=== PATIENT | male | born 1945 | race Caucasian/White ===

== ENCOUNTER 2021-07-28 19:09 | Outpatient (REF) | payer SELFPAY ==
[2021-07-28 19:30] LABS: Abs Immature Grans 0.03 10^3/uL (0.0-0.06); Absolute Basophil Count 0.04 10^3/uL (0.0-0.2); Absolute Eosinophil Count 0.38 10^3/uL (0.0-0.7); Absolute Lymphocyte Count 0.81 10^3/uL (1.2-3.4); Absolute Monocyte Count 0.46 10^3/uL (0.1-0.8); Absolute Neutrophil Count 3.09 10^3/uL (1.2-6.7); Basophils % 0.8; Eosinophils % 7.9; HCT 50.2 % (40.0-50.0); HGB 15.4 g/dL (13.5-17.5); Immature Grans % 0.6; Lymphocytes % 16.8; MCH 28.4 pg (27.0-33.0); MCHC 30.7 % (32.0-36.0); MCV 92.6 fL (80-95); MPV 9.8 fL (8.0-11.0); Monocytes % 9.6; Neutrophils % 64.3; Nucleated RBC 0 %; Platelet Count 187 10^3/uL (130-400); RBC 5.42 10^6/uL (4.36-5.78); RDW 15.7 % (11.8-14.1); RDW-SD 53.2 fL; WBC 4.81 10^3/uL (4.4-10.8)
[2021-07-28 19:40] LABS: ALT 48 U/L (16-63); AST 29 U/L (15-37); Albumin 3.3 g/dL (3.4-5.0); Alkaline Phosphatase 77 U/L (46-116); Anion Gap 4.8 mmol/L (3-11); BUN 17 mg/dL (7-18); Bilirubin, Total 0.4 mg/dL (0.2-1.0); CO2 37.2 mmol/L (21.0-32.0); CREATININE 1.4 mg/dL (0.70-1.30); Calcium 8.5 mg/dL (8.5-10.1); Chloride 102 mmol/L (98-107); Estimated GFR 49.41 (mL/min/1.73m2); Glucose 126 mg/dL (74-106); Potassium 4.4 mmol/L (3.5-5.1); Sodium 144 mmol/L (136-145); Total Protein 6.8 g/dL (6.4-8.2)
== END 2021-07-28 19:10 | disposition home or self-care (01) ==
LOC: LBN 19:09
PROVIDERS: Visit Provider Family Medicine
DX: I50.9 Heart failure, unspecified (principal); I10 Essential (primary) hypertension
CPT/HCPCS: 80053; 85025

== ENCOUNTER 2021-09-29 00:49 | Outpatient (REF) | payer MEDICARE, BC, SELFPAY | END 2021-09-29 00:50 | disposition home or self-care (01) | LOC: LBN 00:49 | PROVIDERS: Visit Provider Family Medicine | DX: J44.1 Chronic obstructive pulmonary disease with (acute) exacerbation (principal) | CPT/HCPCS: 87086 ==

== ENCOUNTER 2021-10-03 23:24 | Emergency (ER) | payer MEDICARE, BC, SELFPAY ==
[2021-10-03 23:29] VITALS: BP 120/55; PULSE 158; PULSE 61; RESP 11; O2SAT 92
[2021-10-03 23:30] VITALS: BP 110/67; PULSE 64; RESP 18; TEMP 36.6; O2SAT 92; O2SAT 93
--- NOTE | 2021-10-03 23:30 | RT.EKG_ITS ---
APPROVED REPORT Exam: Resting ECG Reason for Exam: stroke like symptoms Patient Location: E HR:56 bpm ECG Measurements Heart Rate 56 AXIS WI [id number] P [id number] QRSd 112 QRS 84 QT 414 T 45 QTc 402 Conclusion afib/flutter, rate 56, no stemi
--- NOTE | 2021-10-03 23:30 | DI.CT_ITS ---
Exam(s) CT BRAIN NECK CTA EXAM: CT BRAIN NECK CTA CLINICAL HISTORY: diminished speech, stokre like symptoms. TECHNIQUE: Imaging Protocol: Axial CT angiography was performed with multi-slice acquisition and mu lti-planar and/or 3D reconstructions. CONTRAST MATERIAL: Intravenous: Omnipaque 350 Contrast volume:100 mL COMPARISON: CR,XR XR PORTABLE CHEST AP from 10/04/2021 FINDINGS: CTA Neck W: Aortic arch anatomy: The left vertebral artery arises as an independent vessel off of the aortic arch . Anterior circulation: Both common carotid arteries exhibit no significant stenosis at the origins. At the level the caroti d bulbs there is some calcified plaque bilaterally extending into the proximal ICA on both sides but amount of stenosis is estimated at less than 20 percent bilaterally. Both internal carotid arteries are patent in the upper neck and skull base-carotid canals. Posterior circulation: Left vertebral artery arises as an independent vessel off the aortic arch. Right vertebral artery ar ises off of the right subclavian artery. Vertebral arteries ascend in the foramen transverse area wi th the left vertebral artery being dominant. At the skull base both vertebral arteries contribute to the formation of the basilar artery. CTA Brain W: Anterior circulation: Both internal carotid arteries are patent in the skull base-carotid canals as well as in the cavernou s sinuses and supraclinoid aspects of these vessels are patent. Both A1 segments are patent as are t he anterior cerebral arteries and there is no evidence of aneurysm at the level of the anterior commu nicating artery. Middle cerebral arteries exhibit normal diameter without evidence of intraluminal t hrombus. No aneurysm. Posterior circulation: Formed by both vertebral arteries at skull base, left vertebral artery being dominant. Distal both superior cerebellar arteries are patent. Posterior cerebral arteries are patent supplied also by posterior communicating arteries CT BRAIN: There is no evidence of intracranial hemorrhage, mass effect, or shift of midline structures. There are no extra-axial fluid collections. Ventricles are not enlarged or shifted. There are no ring enh ancing lesions in the brain and no abnormal meningeal enhancement. Symmetrical atrophy noted. Size of the ventricles is commensurate with the size of the overlying cor tical sulci. There is some periventricular hypodensity consistent with chronic small vessel disease. No ring enhancing lesions in the brain. No abnormal meningeal enhancement IMPRESSION: 1. No acute intracranial findings. Symmetrical atrophy. No ring enhancing lesions 2. Some calcified plaque is noted at the level the carotid bulbs and proximal ICAs bilaterally but w ithout hemodynamically significant stenosis (estimated at approximately 20 percent bilaterally). 3. No large vessel stenosis or occlusion in the anterior and posterior circulations of the intracra nial compartment. RADIATION DOSE DELIVERED: 2,362.45mGy.cm Total DLP DATA REPOSITORY: All CT scans at this facility are submitted to the National Radiology Data Registry (NRDR) Dose Index Registry (DIR) with the [employer] (A[employer]). RADIATION OPTIMIZATION: All CT scans at this facility use at least one of these dose optimization te chniques: automated exposure control; mA and/or kV adjustment per patient size (includes targeted exa ms where dose is matched to clinical indication); or iterative reconstruction.
[2021-10-03 23:31] VITALS: BP 110/67; PULSE 60; O2SAT 92
[2021-10-03 23:40] VITALS: O2SAT 95
[2021-10-03 23:46] VITALS: BP 120/72; PULSE 67; O2SAT 93
[2021-10-03 23:47] LABS: Abs Immature Grans 0.02 10^3/uL (0.0-0.06); Absolute Basophil Count 0.04 10^3/uL (0.0-0.2); Absolute Eosinophil Count 0.33 10^3/uL (0.0-0.7); Absolute Lymphocyte Count 0.79 10^3/uL (1.2-3.4); Absolute Monocyte Count 0.46 10^3/uL (0.1-0.8); Absolute Neutrophil Count 3.37 10^3/uL (1.2-6.7); Basophils % 0.8; Eosinophils % 6.6; HCT 50.6 % (40.0-50.0); HGB 15.5 g/dL (13.5-17.5); Immature Grans % 0.4; Lymphocytes % 15.8; MCHC 30.6 % (32.0-36.0); MCV 91.5 fL (80-95); MPV 9.1 fL (8.0-11.0); Monocytes % 9.2; Neutrophils % 67.2; Nucleated RBC 0 %; Platelet Count 173 10^3/uL (130-400); RBC 5.53 10^6/uL (4.36-5.78); RDW 16.5 % (11.8-14.1); WBC 5.01 10^3/uL (4.4-10.8)
[2021-10-03 23:50] VITALS: O2SAT 91
--- NOTE | 2021-10-03 23:56 | ED.GENADUL_ITS ---
Discharge Plan Disposition Patient Disposition: [facility] (LEVEL 2) [facility] Condition: Good Discharge Details Clinical Impression: Acute alteration in mental status Primary Care Provider: Kiran Chacon ED Provider: Naseem Gleason Home Meds and New Rx's Prescriptions: Continued amiodarone 200 mg Tablet 200 mg PO DAILY RF: 0 benztropine 1 mg Tablet 1 mg PO DAILY RF: 0 duloxetine [Cymbalta] 30 mg Capsule,Delayed Release(Dr/Ec) 30 mg PO INFUSION RF: 0 digoxin 125 mcg (0.125 mg) Tablet 125 mcg PO DAILY RF: 0 melatonin 3 mg Tablet 3 mg PO DAILY RF: 0 omeprazole 20 mg Capsule,Delayed Release(Dr/Ec) 20 mg PO DAILY RF: 0 pravastatin 40 mg Tablet 40 mg PO DAILY RF: 0 tamsulosin 0.4 mg Capsule 0.4 mg PO INFUSION RF: 0 ipratropium bromide 18 mcg/actuation Aerosol 18 mcg INHALATION RF: 0 budesonide-formoterol 160-4.5 mcg/actuation Hfa Aerosol Inhaler 1 puff INHALATION BID RF: 0 buspirone 10 mg Tablet 10 mg PO BID RF: 0 docusate sodium [Colace] 100 mg Capsule 100 mg PO BID RF: 0 Eliquis 5 mg Tablet 5 mg PO BID RF: 0 furosemide [Lasix] 20 mg Tablet 20 mg PO BID RF: 0 metoprolol tartrate 25 mg Tablet 12 mg PO BID RF: 0 albuterol sulfate 90 mcg/actuation Hfa Aerosol Inhaler 1 puff INHALATION Q4H PRN PRNRF: 0 dextromethorphan-guaifenesin 10-100 mg/5 mL Liquid 10 ml PO Q6H PRN PRNRF: 0 bisacodyl [Dulcolax (bisacodyl)] 10 mg Suppository 10 mg [place] DAILY PRN PRNRF: 0 Discharge Instructions Instructions: Altered Mental Status (ED) Additional Instructions: Laboratory work-up is unremarkable. CT and CTA of your head shows no evidence of stroke or thrombus. Chest x-ray is negative for pneumonia or other significant abnormality. I suspect the patient has mild amount of sleep apnea because of minimal transient hypoxemia at 89% on room air. Mental status appears to be stable, the patient is speaking well here. No signs of an acute stroke clinically. Recommend close follow-up with PCP tomorrow. If you notice any worsening of your symptoms, or any new symptoms such as vomiting, diarrhea, fever, chills, shortness of breath, chest pain, numbness, weakness, or fainting , please return immediately to the emergency department for reevaluation. Please follow up with your primary care provider as soon as possible for reassessment and reevaluation. As always, it was a pleasure participating in your medical care today. Referrals: Kiran Chacon [Primary Care Provider] - Medical Decision Making This is a 76-year-old male whom we have no previous medical records but per review of record has a history of DNR/DNI, COPD, paroxysmal A. fib, heart failure, hypertension, anxiety disorder, major depressive disorder, GERD, high cholesterol, BPH, obesity, chronic difficulty with ambulation, ataxia, who presents today from health and rehab for decreased verbal communication and a brief hypoxic episode. Per health and rehab with the patient was evaluated this evening he was hypoxic at 88 to 89% and nonverbal, he is normally verbal. Patient was brought to the ER for further assessment. Upon arrival patient does communicate somewhat. Is able to follow commands. He denies any complaints of pain. EMS and shelter deny any recent falls or trauma. Patient is unable to otherwise contribute to history. EMS vital signs are stable. Glucose normal. Patient was able to communicate with EMS by following commands. No other complaints time. No other modifying factors currently Physical exam demonstrates a well-appearing male, good muscle strength of the upper extremities bilaterally, diminished strength of the lower extremities bilaterally which may be chronic rather than acute. No facial asymmetry. Patient does not seem to demonstrate any slurred speech, however he does speak to the nurse but will not speak to me. Answers are limited. Mucous membranes are dry. Difficult to tell if this is sundowning, altered mental status secondary to metabolic abnormality, or less likely stroke. Patient is on blood thinners already and would not be a tPA candidate. We will get a CT CTA of the head, gently rehydrate evaluate for infectious etiologies and metabolic causes, monitor closely and reassess 1:[address]/CTA as well as chest x-ray are negative for acute process. No evidence of pneumonia, aspiration pneumonia, stroke, or large thrombus. Laboratory work-up is notably unremarkable. Patient's neurologic status remained stable here, he continues to communicate and speak well with both nursing staff and the technician plant and maintenance. Symptoms are inconsistent with stroke, significant hypoxemia. When the patient does fall asleep he does dip down to 89%. Suspect mild component of sleep apnea. With no signs of significant metabolic or neurologic abnormality at this time I do feel it is safe for return back to health and rehab. I did try to personally contact health and rehab but they did not machine operator picker on our attempts to call. Patient will be brought back via EMS. I have extensively reviewed the treatment plan and discharge instructions with the patient. I have addressed all patient concerns at this time. The patient was made aware of what symptoms to monitor for that would warrant a return to the emergency department. Discussed the plan with the patient, they demonstrate verbal understanding and agreement with our assessment and plan at this time. The documentation in this chart was dictated using i[employer] dictation software. Please excuse any dictation errors. FINDINGS: Brain: Prominence of cerebral sulci reflects diffuse cerebral atrophy. Poorly marginated hypodensities seen throughout the deep and periventricular white matter of both cerebral hemispheres are consistent with microvascular ischemic changes. Brainstem and cerebellum are unremarkable and there is no evidence of acute infarct or recent intracranial hemorrhage. Cerebral ventricles: Dilatation of the 3rd and lateral ventricles is commensurate with the degree of cerebral atrophy. Paranasal sinuses: Sphenoethmoid mucosal densities are identified with other paranasal sinuses clear. Mastoid air cells: Normally pneumatized and clear bilaterally. Bones/joints: Bony calvarium and skull base are intact and no acute fractures are detected. Soft tissues: Unremarkable. IMPRESSION: Diffuse atrophy and chronic ischemic changes with no evidence of acute infarct, recent hemorrhage or hydrocephalus. No acute intracranial process is detected. FINDINGS: ANTERIOR CIRCULATION: Right internal carotid artery: Unremarkable. Intracranial segment is patent with no significant stenosis. No aneurysm. Right middle cerebral artery: Unremarkable. No occlusion or significant stenosis. No aneurysm. Right anterior cerebral artery: Unremarkable. No occlusion or significant stenosis. No aneurysm. Left internal carotid artery: Unremarkable. Intracranial segment is patent with no significant stenosis. No aneurysm. Left middle cerebral artery: Unremarkable. No occlusion or significant stenosis. No aneurysm. Left anterior cerebral artery: Unremarkable. No occlusion or significant stenosis. No aneurysm. POSTERIOR CIRCULATION: Right vertebral artery: Unremarkable. No occlusion or significant stenosis. No aneurysm. Left vertebral artery: Unremarkable. No occlusion or significant stenosis. No aneurysm. Basilar artery: Unremarkable. No occlusion or significant stenosis. No aneurysm. Right posterior cerebral artery: origin of the right posterior cerebral artery is a common developmental variant and there is no occlusion or significant stenosis. No aneurysm. Left posterior cerebral artery: origin of the left posterior cerebral art abdon is a common developmental variant and there is no occlusion or significant stenosis. No aneurysm. IMPRESSION: No large vessel stenosis or occlusion detected involving the major branches of the anterior or posterior intracranial circulation. Thank you for allowing us to participate in the care of your patient. Dictated and Authenticated by: Dioni Mejia MD 10/04/2021 1:09 AM Eastern Time ([place] & [place]) FINDINGS: Lungs: No parenchymal mass or consolidation. Pleural spaces: Unremarkable. No pleural effusion. No pneumothorax. Heart/Mediastinum: Heart is enlarged and vessel margins are relatively sharply defined. Bones/joints: No acute osseous lesions are detected. IMPRESSION: Cardiomegaly with no acute cardiopulmonary process detected. Thank you for allowing us to participate in the care of your patient. Dictated and Authenticated by: Dioni Mejia MD 10/04/2021 1:19 AM Eastern Time ([place] & [place]) HPI General Date/Time Provider Initiated Documentation: 10/03/21 23:32 . HPI Narrative: This is a 76-year-old male whom we have no previous medical records but per review of record has a history of DNR/DNI, COPD, paroxysmal A. fib, heart failure, hypertension, anxiety disorder, major depressive disorder, GERD, high cholesterol, BPH, obesity, chronic difficulty with ambulation, ataxia, who presents today from health and rehab for decreased verbal communication and a brief hypoxic episode. Per health and rehab with the patient was evaluated this evening he was hypoxic at 88 to 89% and nonverbal, he is normally verbal. Patient was brought to the ER for further assessment. Upon arrival patient does communicate somewhat. Is able to follow commands. He denies any complaints of pain. EMS and shelter deny any recent falls or trauma. Patient is unable to otherwise contribute to history. EMS vital signs are stable. Glucose normal. Patient was able to communicate with EMS by following commands. No other complaints time. No other modifying factors currently Related Data Home Medications Medication Instructions Recorded Confirmed Eliquis 5 mg PO BID 10/04/21 10/04/21 albuterol sulfate 1 puff INHALATION Q4H PRN PRN 10/04/21 10/04/21 amiodarone 200 mg PO DAILY 10/04/21 10/04/21 benztropine 1 mg PO DAILY 10/04/21 10/04/21 bisacodyl [Dulcolax (bisacodyl)] 10 mg [place] DAILY PRN PRN 10/04/21 10/04/21 budesonide-formoterol 1 puff INHALATION BID 10/04/21 10/04/21 buspirone 10 mg PO BID 10/04/21 10/04/21 dextromethorphan-guaifenesin 10 ml PO Q6H PRN PRN 10/04/21 10/04/21 digoxin 125 mcg PO DAILY 10/04/21 10/04/21 docusate sodium [Colace] 100 mg PO BID 10/04/21 10/04/21 duloxetine [Cymbalta] 30 mg PO INFUSION 10/04/21 10/04/21 furosemide [Lasix] 20 mg PO BID 10/04/21 10/04/21 ipratropium bromide 18 mcg INHALATION 10/04/21 melatonin 3 mg PO DAILY 10/04/21 10/04/21 metoprolol tartrate 12 mg PO BID 10/04/21 10/04/21 omeprazole 20 mg PO DAILY 10/04/21 10/04/21 pravastatin 40 mg PO DAILY 10/04/21 10/04/21 tamsulosin 0.4 mg PO INFUSION 10/04/21 10/04/21 General Stated Complaint: AMS/LOC AYAD: 2 Review of Systems All systems reviewed & are unremarkable except as noted in HPI and below PFSH All Active Problems (Updated 10/04/21 @ 01:27 by Naseem Gleason DO) Acute alteration in mental status (Acute) Social History Smoking/Tobacco Use Status: Never Smoking risk assessment performed?: Yes Alcohol Intake: never Drug use: Never Substance use type: does not use Do you feel safe at home: Yes Do you feel safe in your relationship?: Yes Exam Narrative Exam Narrative: 1.Const: Well-nourished, Well-developed, appearing stated age 2.Eyes: PERRL, no conjunctival injection, and symmetrical lids. 3.ENT: Atraumatic external nose and ears. dry MM. Neck: Symmetric, trachea midline, No thyromegaly. No facial asymmetry 4.CVS: +S1/S2, No murmurs or gallops. Peripheral pulses 2+ and equal in all extremities. Brisk capillary refill in all extremities. 5.RESP: Unlabored respiratory effort. Clear to auscultation bilaterally. No wheezes rales or rhonchi 6.GI: Soft, Nontender/Nondistended, No hepatosplenomegaly. No guarding or rebound. 7.MSK: Normocephalic/Atraumatic, Extremities w/o deformity or ttp No cyanosis or clubbing. 5 out of 5 strength of the upper extremities bilaterally, 3 out of 5 strength of the lower extremities bilaterally. Patient is able to lift and move his arms and respond to commands for these. He has difficulty lifting his legs. He does appear to show some muscle wasting in his legs. 8.Skin: Warm, Dry. No rashes or lesions. 9.Neuro: hand marker II-XII grossly intact. No facial asymmetry. Patient demonstrates good auditing control clerk auditing control clerk strength bilaterally. He is able to speak, and he does speak with the nurse occasionally but does not speak to me. His speech appears clear when he does speak. Although it does appear limited. He does not answer my focus stroke questions. 10.Psych: (AAO) x0. Otherwise plan Course Vital Signs Vital signs: Vital Signs Temperature 36.6 C 10/03/21 23:30 Pulse 64 10/03/21 23:30 Respiratory Rate 18 10/03/21 23:30 Blood Pressure 110/67 10/03/21 23:30 Pulse Oximetry 92 10/03/21 23:30 Temperature 36.6 C 10/03/21 23:30 Temperature Source Temporal Artery Scan 10/03/21 23:30 Pulse 64 10/03/21 23:30 Respiratory Rate 18 10/03/21 23:30 Respiratory Effort 10/03/21 23:34 Respiratory Depth Normal 10/03/21 23:34 Respiratory Pattern Normal 10/03/21 23:34 Blood Pressure 110/67 10/03/21 23:30 Blood Pressure Position Supine 10/03/21 23:30 Pulse Oximetry 92 10/03/21 23:30 Oxygen Delivery Method Room Air 10/03/21 23:30 Oxygen Flow Rate 0 10/03/21 23:30 Pain Level 0 10/03/21 23:30 Lab/Test Results Lab/Test Results: Laboratory Tests Range/Units 10/03/21 23:40 WBC (4.4-10.8) 10^3/uL 5.01 RBC (4.36-5.78) 10^6/uL 5.53 Hgb (13.5-17.5) g/dL 15.5 Hct (40.0-50.0) % 50.6 H MCV (80-95) fL 91.5 MCH (27.0-33.0) pg 28.0 MCHC (32.0-36.0) % 30.6 L RDW (11.8-14.1) % 16.5 H Plt Count (130-400) 10^3/uL 173 MPV (8.0-11.0) fL 9.1 Immature Gran % 0.4 Neutrophils % 67.2 Lymphocytes % 15.8 Monocytes % 9.2 Eosinophils % 6.6 Basophils % 0.8 Nucleated RBC % % 0 Absolute Neutrophils (1.2-6.7) 10^3/uL 3.37 Absolute Lymphocytes (1.2-3.4) 10^3/uL 0.79 L Absolute Monocytes (0.1-0.8) 10^3/uL 0.46 Absolute Eosinophils (0.0-0.7) 10^3/uL 0.33 Absolute Basophils (0.0-0.2) 10^3/uL 0.04
[2021-10-04] VITALS (8 sets, daily range): BP systolic 113–120; BP diastolic 65–70; PULSE 53–63; RESP 21–26; O2SAT 83–91
[2021-10-04] LABS: Ammonia < 10 umol/L (11-32)
[2021-10-04 00:10] LABS: ALT 25 U/L (16-63); AST 16 U/L (15-37); Albumin 3.2 g/dL (3.4-5.0); Alkaline Phosphatase 79 U/L (46-116); Anion Gap 5.3 mmol/L (3-11); BUN 14 mg/dL (7-18); Bilirubin, Total 0.7 mg/dL (0.2-1.0); CO2 33.7 mmol/L (21.0-32.0); CREATININE 1.3 mg/dL (0.70-1.30); Calcium 8.6 mg/dL (8.5-10.1); Chloride 101 mmol/L (98-107); Estimated GFR 53.82 (mL/min/1.73m2); Glucose 124 mg/dL (74-106); Sodium 140 mmol/L (136-145); TSH (W/Ref FT4) 1.24 uIU/mL (0.36-3.74); Total Protein 7.5 g/dL (6.4-8.2); Troponin I < 50 ng/L (<or=60)
[2021-10-04] MEDS: Omnipaque 350 MG/ML 100 ML BTL IJ (00:19)
[2021-10-04] MEDS: Normal Saline Flush 10 ML SYR IVP (00:20)
[2021-10-04 00:21] LABS: Bilirubin Negative (Negative); Blood Negative (Negative); Clarity Clear (Clear); Glucose Negative (Negative); Ketones Negative (Negative); Leukocyte Esterase Negative (Negative); Nitrite Negative (Negative); Specific Gravity 1.025 (1.005-1.025)
[2021-10-04 00:24] LABS: Digoxin 1.14 ng/mL (0.90-2.00)
--- NOTE | 2021-10-04 01:00 | DI.RAD_ITS ---
Exam(s) XR PORTABLE CHEST AP EXAM: XR PORTABLE CHEST AP CLINICAL HISTORY: sob. TECHNIQUE: 2D digital imaging was performed. COMPARISON: No exams were available for comparison FINDINGS: Cardiomegaly noted. Mediastinum not widened. Left lung is clear Mild increased markings noted in the lateral right lung, possibly exaggerated by overlying scapula. No pleural effusions IMPRESSION: As above. Recommend nonportable PA and lateral views when clinically possible DATA REPOSITORY: RADIATION DOSE DELIVERED: All CT scans at this facility use at least one of these dose optimization techniques: automated exposure control; mA and/or kV adjustment per patient size (includes targeted e xams where dose is matched to clinical indication); or iterative reconstruction.
--- NOTE | 2021-10-04 01:10 | DI.VRAD_ITS ---
PROCEDURE INFORMATION: Exam: CT Angiography Neck With Contrast Exam date and time: 10/03/2021 11:35 PM Age: 76 years old Clinical indication: Speech disturbance; Patient HX: Diminished speech, stroke like symptoms TECHNIQUE: Imaging protocol: Computed tomography angiography of the neck with contrast. 3D rendering (Not supervised by radiologist): MIP and/or 3D reconstructed images were created by the technologist. Radiation optimization: All CT scans at this facility use at least one of these dose optimization techniques: automated exposure control; mA and/or kV adjustment per patient size (includes targeted exams where dose is matched to clinical indication); or iterative reconstruction. COMPARISON: No relevant prior studies available. FINDINGS: Right common carotid artery: No stenosis. No dissection or occlusion. Right internal carotid artery: No stenosis of the extracranial segment. No dissection or occlusion. Right external carotid artery: No occlusion or stenosis of the origin. Left common carotid artery: No stenosis. No dissection or occlusion. Left internal carotid artery: No stenosis of the extracranial segment. No dissection or occlusion. Left external carotid artery: No occlusion or stenosis of the origin. Right vertebral artery: No stenosis. No dissection or occlusion. Left vertebral artery: No stenosis. No dissection or occlusion. Soft tissues: Normal. No significant soft tissue swelling. Bones/joints: No acute fracture. IMPRESSION: No evidence of 50% or greater stenosis involving the cervical segments of the right or left internal carotid arteries by NASCET criteria. REFERENCES: NASCET CRITERIA. The degree of internal carotid artery stenosis is based on NASCET criteria. Normal is no stenosis. Mild is less than 50% stenosis. Moderate is 50-69% stenosis. Severe is 70% to 99% stenosis. Total occlusion is no detectable patent lumen. Dictated and Authenticated by: Dioni Mejia MD. Ordering:DAVID Gusman MD
--- NOTE | 2021-10-04 01:19 | DI.VRAD_ITS ---
PROCEDURE INFORMATION: Exam: XR Chest Exam date and time: 10/04/2021 1:07 AM Age: 76 years old Clinical indication: Shortness of breath; Patient HX: SOB TECHNIQUE: Imaging protocol: XR of the chest. Views: 1 view. COMPARISON: CT BRAIN NECK CTA 10/04/2021 12:23 AM FINDINGS: Lungs: No parenchymal mass or consolidation. Pleural spaces: Unremarkable. No pleural effusion. No pneumothorax. Heart/Mediastinum: Heart is enlarged and vessel margins are relatively sharply defined. Bones/joints: No acute osseous lesions are detected. IMPRESSION: Cardiomegaly with no acute cardiopulmonary process detected. Dictated and Authenticated by: Dioni Mejia MD. Ordering:DAVID Gusman MD
== END 2021-10-04 01:44 | disposition intermediate care facility (04) ==
PROVIDERS: Emergency Provider Student in an Organized Health Care Education/Training Program; PCP Family Medicine
DX: R41.82 Altered mental status, unspecified (principal); R09.02 Hypoxemia; R47.89 Other speech disturbances; R06.02 Shortness of breath; Z79.01 Long term (current) use of anticoagulants; J44.9 Chronic obstructive pulmonary disease, unspecified; I48.20 Chronic atrial fibrillation, unspecified; I10 Essential (primary) hypertension
CPT/HCPCS: 51701; 70496; 70498; 80053; 93005; 99285; 71045; 80162; 81003; 82140; 84443; 84484; 85025; 93010; 99284; J3490

== ENCOUNTER 2021-10-20 15:12 | Emergency (ER) | payer MEDICARE, BC, SELFPAY ==
[2021-10-20] VITALS (10 sets, daily range): BP systolic 82–110; BP diastolic 54–76; PULSE 43–80; RESP 12–22; TEMP 36.8; O2SAT 90–96
--- NOTE | 2021-10-20 14:45 | RT.EKG_ITS ---
APPROVED REPORT Exam: Resting ECG Reason for Exam: not responding appropriately Patient Location: E HR:60 bpm ECG Measurements Heart Rate 60 AXIS CA [id number] P [id number] QRSd 109 QRS 139 QT 441 T -88 QTc 442 Conclusion Atrial fibrillation...? atrial activity Anteroseptal infarct, age indeterminate...Q >35mS, T neg, V1-V2
--- NOTE | 2021-10-20 15:15 | DI.RAD_ITS ---
Exam(s) XR CHEST 2V PA LATERAL EXAM: XR CHEST 2V PA LATERAL CLINICAL HISTORY: L base rales, tremulous at [place]. TECHNIQUE: 2D digital imaging was performed. COMPARISON: CR,XR XR PORTABLE CHEST AP from 10/04/2021 FINDINGS: Heart size is normal. The mediastinum is not widened. Lungs are clear. No infiltrates nor pleural effusions. IMPRESSION: No acute pulmonary findings. DATA REPOSITORY: RADIATION DOSE DELIVERED:
--- NOTE | 2021-10-20 15:15 | DI.CT_ITS ---
Exam(s) CT HEAD CERVICAL SPINE WO EXAM: CT HEAD CERVICAL SPINE WO CLINICAL HISTORY: fall last night, tremulous. TECHNIQUE: Imaging Protocol: Axial computed tomography images with coronal and sagittal reformatted images were created and reviewed COMPARISON: CT CT BRAIN NECK CTA from 10/04/2021 FINDINGS: BRAIN: There are no skull fractures. Mild mucosal thickening in the paranasal sinuses noted. Scleral trish ng in the right orbit is again noted. There is no evidence of intracranial hemorrhage, mass effect, or shift of midline structures. There are no extra-axial fluid collections. Ventricular size is again noted be slightly prominent but unch anged. There is abundant bilateral periventricular hypodensity consistent with chronic small vessel disease. This exhibits minimal if any significant change. No new obvious territorial infarcts. CERVICAL SPINE: There is no evidence of acute fracture nor listhesis. No significant prevertebral soft tissue swelli ng. Multilevel chronic disc space narrowing. Multilevel facet arthropathy. No facet malalignment There is no significant facet joint malalignment. No significant osseous lesions evident. IMPRESSION: No acute intracranial findings on this noninfused CT scan of the brain.Chronic small-vessel white mat ter ischemic changes No evidence of acute cervical spine fracture, malalignment, nor acute compromise of the cervical spin al canal. Chronic degenerative changes in the cervical spine again noted. RADIATION DOSE DELIVERED: 2,010.49mGy.cm Total DLP DATA REPOSITORY: All CT scans at this facility are submitted to the National Radiology Data Registry (NRDR) Dose Index Registry (DIR) with the [employer] (A[employer]). RADIATION OPTIMIZATION: All CT scans at this facility use at least one of these dose optimization te chniques: automated exposure control; mA and/or kV adjustment per patient size (includes targeted exa ms where dose is matched to clinical indication); or iterative reconstruction.
--- NOTE | 2021-10-20 15:30 | ED.GENADUL_ITS ---
Discharge Plan Disposition Patient Disposition: SNF (LEVEL 1) [facility] Condition: Improving Discharge Details Chief Complaint: GenMedical Clinical Impression: Parkinson's disease, Mild dehydration Primary Care Provider: Kiran Chacon ED Provider: Christopher Simmons Home Meds and New Rx's Prescriptions: Continued gabapentin 300 mg capsule 300 mg PO TID RF: 0 ipratropium-albuterol 0.5 mg-3 mg(2.5 mg base)/3 mL solution for nebulization 3 ml inhalation Q6H PRNRF: 0 magnesium hydroxide [Dulcolax (magnesium hydroxide)] 400 mg/5 mL suspension 400 mg PO DAILY PRNRF: 0 metoprolol tartrate 25 mg tablet 12.5 mg PO BID RF: 0 tiotropium bromide 18 mcg capsule, w/inhalation device 1 cap inhalation DAILY RF: 0 amiodarone 200 mg Tablet 200 mg PO DAILY RF: 0 benztropine 1 mg Tablet 1 mg PO DAILY RF: 0 digoxin 125 mcg (0.125 mg) Tablet 125 mcg PO DAILY RF: 0 melatonin 3 mg Tablet 3 mg PO DAILY RF: 0 omeprazole 20 mg Capsule,Delayed Release(Dr/Ec) 20 mg PO DAILY RF: 0 pravastatin 40 mg Tablet 40 mg PO DAILY RF: 0 tamsulosin 0.4 mg Capsule 0.4 mg PO INFUSION RF: 0 ipratropium bromide 18 mcg/actuation Aerosol 18 mcg INHALATION RF: 0 budesonide-formoterol 160-4.5 mcg/actuation Hfa Aerosol Inhaler 1 puff INHALATION BID RF: 0 buspirone 10 mg Tablet 10 mg PO BID RF: 0 docusate sodium [Colace] 100 mg Capsule 100 mg PO BID RF: 0 Eliquis 5 mg Tablet 5 mg PO BID RF: 0 furosemide [Lasix] 20 mg Tablet 20 mg PO BID RF: 0 albuterol sulfate 90 mcg/actuation Hfa Aerosol Inhaler 1 puff INHALATION Q4H PRN PRNRF: 0 dextromethorphan-guaifenesin 10-100 mg/5 mL Liquid 10 ml PO Q6H PRN PRNRF: 0 bisacodyl [Dulcolax (bisacodyl)] 10 mg Suppository 10 mg VT DAILY PRN PRNRF: 0 risperidone 0.25 mg Tablet 0.25 mg PO BID RF: 0 Discharge Instructions Additional Instructions: Your work-up in the emergency department included CAT scan of the head and cervical spine, chest x-ray, urinalysis, and blood work. We discussed how you used to ride motorcycles and were born in [facility]. Your potassium was slightly low at 3.1 for which you received 20 mEq of oral potassium. This should continue to be monitored at your rehabilitation facility. You were given 250 cc of fluids in the emergency department. Medical Decision Making This is a 76-year-old male who lives at [facility]. He was noted to have a fall last night at approximately 2 in the morning. This afternoon he seemed to have weakness, some decreased responsiveness and was noted to have trembling. EMS was called. During their transport the patient became more alert and interactive. Upon arrival he tells me he was born in [facility] and that he used to ride [employer] motorcycles. He is unable to tell me where he is currently living. [place] patient is in no acute distress. He has as needed oxygen at home and is 91-97 on room air and therefore placed on 2 L. His vital signs are otherwise. Screening examination is reassuring without evidence of acute injury. He does have subtle rales at the left base. Patient is referred for laboratory, EKG, chest x-ray and CT scan of the head and cervical spine given the report of fall. His diagnostic studies note white count 4, hematocrit 53, platelets 185. Chemistries with sodium 139, potassium 3.1, BUN 19, creatinine 1.4 which is essentially his baseline. Magnesium, AST and ALT, troponin are all unremarkable. Slightly concentrated urine specific gravity 1.03. Negative nitrites and negative leuk esterase. Imaging reveals no acute findings of the chest. CT of the head and cervical spine with degenerative changes present in the cervical spine and chronic small vessel matter ischemic changes present in the brain. See formal reports. Patient received 20 mEq of oral potassium. Patient stable and improving. He is appropriate for discharge to home. No clear etiology for the behavior witnessed by staff at the skilled nursing. There is no evidence of traumatic injury. HPI General Mode of arrival: EMS . Date/Time Provider Initiated Documentation: 10/20/21 15:16 . Limitations to Documentation: no limitations . Information obtained by: patient, EMS and RN notes reviewed . History of Present Illness 76 year old M presents to the emergency department with the chief complaint of Weakness and tremulous at skilled nursing, fell last night, described as moderate, Patient started experiencing this hour(s) and it has been now resolved. No relieving factors improve symptom(s), No exacerbating factors reported . Patient notes denies headaches, shortness of breath and weakness. Patient did receive the following treatments prior to arrival, none Related Data Home Medications Medication Instructions Recorded Confirmed Eliquis 5 mg PO BID 10/04/21 10/20/21 albuterol sulfate 1 puff INHALATION Q4H PRN PRN 10/04/21 10/20/21 amiodarone 200 mg PO DAILY 10/04/21 10/20/21 benztropine 1 mg PO DAILY 10/04/21 10/20/21 bisacodyl [Dulcolax (bisacodyl)] 10 mg VT DAILY PRN PRN 10/04/21 10/20/21 budesonide-formoterol 1 puff INHALATION BID 10/04/21 10/20/21 buspirone 10 mg PO BID 10/04/21 10/20/21 dextromethorphan-guaifenesin 10 ml PO Q6H PRN PRN 10/04/21 10/20/21 digoxin 125 mcg PO DAILY 10/04/21 10/20/21 docusate sodium [Colace] 100 mg PO BID 10/04/21 10/20/21 furosemide [Lasix] 20 mg PO BID 10/04/21 10/20/21 ipratropium bromide 18 mcg INHALATION 10/04/21 melatonin 3 mg PO DAILY 10/04/21 10/20/21 omeprazole 20 mg PO DAILY 10/04/21 10/20/21 pravastatin 40 mg PO DAILY 10/04/21 10/20/21 tamsulosin 0.4 mg PO INFUSION 10/04/21 10/20/21 gabapentin 300 mg capsule 300 mg PO TID 10/11/21 10/20/21 ipratropium 0.5 mg-albuterol 3 mg 3 ml INHALATION Q6H PRN 10/11/21 10/20/21 (2.5 mg base)/3 mL nebulization soln magnesium hydroxide 400 mg/5 mL 400 mg PO DAILY PRN ml 10/11/21 10/20/21 oral suspension metoprolol tartrate 25 mg tablet 12.5 mg PO BID tab 10/11/21 10/20/21 tiotropium bromide 18 mcg capsule 1 cap INHALATION DAILY 10/11/21 10/20/21 with inhalation device risperidone 0.25 mg PO BID 10/20/21 10/20/21 Allergies Allergy/AdvReac Type Severity Reaction Status Date / Time No Known Allergies Allergy Unverified 10/20/21 15:26 General Stated Complaint: GenMedical AYAD: 2 Review of Systems Narrative: As needed oxygen at home. No tongue biting. Wears a diaper. Review of systems limited by patient's advanced age, dementia, Parkinson's. PFSH All Active Problems (Updated 10/20/21 @ 16:46 by Christopher Simmons MD) Parkinson's disease (Chronic) Mild dehydration (Acute) Gait instability (Acute) Hyperlipidemia (Acute) GERD (gastroesophageal reflux disease) (Chronic) Depression (Chronic) Anxiety (Chronic) Hypertension (Chronic) CHF (congestive heart failure) (Chronic) Paroxysmal atrial fibrillation (Acute) Chronic obstructive pulmonary disease (Chronic) Acute alteration in mental status (Acute) Social History Smoking/Tobacco Use Status: Never Smoking risk assessment performed?: Yes Alcohol Intake: never Drug use: Never Substance use type: does not use Do you feel safe at home: Yes Do you feel safe in your relationship?: Yes Exam Narrative Exam Narrative: GEN: awake, alert, interactive. HEAD: Normocephalic, atraumatic ENT: Mucous membranes dry, oropharynx unremarkable, External ear exam unremarkable EYES: PERRL, EOMI NECK: Full ROM, no LI, no menigismus CHEST/RESP: Nontender, clear with note of left base subtle rale CARDIOVASCULAR: Irregularly irregular, no murmur, rub candelario. 2+ Rad pulse bilateral ABDOMEN: Soft, nontender, no mass. +Bowel sounds EXT: Full ROM, no edema, no rash Neuro: Grossly normal neurologic exam, conversant, interactive. Psych: Speech fluent, affect normal Course Vital Signs Vital signs: Vital Signs Temperature 36.8 C 10/20/21 14:56 Pulse 80 10/20/21 14:56 Respiratory Rate 12 10/20/21 14:56 Blood Pressure 110/76 10/20/21 14:56 Pulse Oximetry 91 L 10/20/21 14:56 Temperature 36.8 C 10/20/21 14:56 Temperature Source Skin 10/20/21 14:56 Pulse 80 10/20/21 14:56 Respiratory Rate 12 10/20/21 14:56 Respiratory Effort 10/20/21 14:56 Blood Pressure 110/76 10/20/21 14:56 Blood Pressure Position Supine 10/20/21 14:56 Pulse Oximetry 91 L 10/20/21 14:56 Oxygen Delivery Method Room Air 10/20/21 14:56 Oxygen Flow Rate 0 10/20/21 14:56 Pain Level 0 10/20/21 14:56
[2021-10-20 15:41] LABS: Abs Immature Grans 0.01 10^3/uL (0.0-0.06); Absolute Basophil Count 0.05 10^3/uL (0.0-0.2); Absolute Eosinophil Count 0.36 10^3/uL (0.0-0.7); Absolute Lymphocyte Count 0.98 10^3/uL (1.2-3.4); Absolute Monocyte Count 0.35 10^3/uL (0.1-0.8); Absolute Neutrophil Count 2.63 10^3/uL (1.2-6.7); Basophils % 1.1; Eosinophils % 8.2; HCT 53.3 % (40.0-50.0); HGB 16.6 g/dL (13.5-17.5); Immature Grans % 0.2; Lymphocytes % 22.4; MCH 28.3 pg (27.0-33.0); MCHC 31.1 % (32.0-36.0); MPV 9.2 fL (8.0-11.0); Neutrophils % 60.1; Nucleated RBC 0 %; Platelet Count 185 10^3/uL (130-400); RBC 5.86 10^6/uL (4.36-5.78); RDW 16.3 % (11.8-14.1); RDW-SD 54.4 fL; WBC 4.38 10^3/uL (4.4-10.8)
[2021-10-20] MEDS: Normal Saline 1,000 ML 150 ML IV (15:42)
[2021-10-20] MEDS: Lidocaine 2% Jelly 11 ML SYR UR (15:43)
[2021-10-20 16:00] LABS: Bilirubin Small (Negative); Blood Negative (Negative); Clarity Clear (Clear); Glucose Negative (Negative); Ketones Trace mg/dL (Negative); Leukocyte Esterase Negative (Negative); Nitrite Negative (Negative); Specific Gravity >= 1.030 (1.005-1.025)
[2021-10-20 16:07] LABS: ALT 26 U/L (16-63); AST 25 U/L (15-37); Albumin 3.2 g/dL (3.4-5.0); Alkaline Phosphatase 71 U/L (46-116); Anion Gap 3.3 mmol/L (3-11); BUN 19 mg/dL (7-18); Bilirubin, Total 0.9 mg/dL (0.2-1.0); CO2 34.7 mmol/L (21.0-32.0); CREATININE 1.4 mg/dL (0.70-1.30); Calcium 8.7 mg/dL (8.5-10.1); Chloride 101 mmol/L (98-107); Estimated GFR 49.41 (mL/min/1.73m2); Glucose 95 mg/dL (74-106); Magnesium 2.2 mg/dL (1.8-2.4); Potassium 3.1 mmol/L (3.5-5.1); Sodium 139 mmol/L (136-145); Total Protein 7.7 g/dL (6.4-8.2); Troponin I < 50 ng/L (<or=60)
[2021-10-20 16:09] LABS: Bacteria Negative HPF (Negative); C & S Indicated? No; Casts 3-5 Hyaline LPF (Negative); Crystals Negative HPF (Negative); Epithelial Cells Negative HPF (Negative); Mucus Moderate (Negative); RBC 0-2 HPF (0-2); WBC Negative HPF (0-5)
[2021-10-20] MEDS: Potassium Chloride 20 MEQ TABCR PO (16:51)
== END 2021-10-20 17:35 | disposition skilled nursing facility (03) ==
PROVIDERS: Emergency Provider Emergency Medicine; PCP Family Medicine
DX: G20 Parkinson's disease (principal); E86.0 Dehydration; E87.6 Hypokalemia; R53.1 Weakness; R41.82 Altered mental status, unspecified
CPT/HCPCS: 36415; 80053; 93005; 99285; 70450; 71046; 72125; 81003; 81015; 83735; 84484; 85025; 93010; 99284

== ENCOUNTER 2021-11-02 16:47 | Outpatient (REF) | payer MEDICARE, BC, SELFPAY ==
[2021-11-02 14:25] LABS: Ammonia 22 umol/L (11-32)
[2021-11-02 15:07] LABS: Abs Immature Grans 0.04 10^3/uL (0.0-0.06); Absolute Basophil Count 0.04 10^3/uL (0.0-0.2); Absolute Eosinophil Count 0.19 10^3/uL (0.0-0.7); Absolute Monocyte Count 0.34 10^3/uL (0.1-0.8); Absolute Neutrophil Count 5.18 10^3/uL (1.2-6.7); Basophils % 0.6; Eosinophils % 2.8; HGB 15.5 g/dL (13.5-17.5); Immature Grans % 0.6; Lymphocytes % 13.5; MCH 28.4 pg (27.0-33.0); MCHC 30.4 % (32.0-36.0); MCV 93.4 fL (80-95); MPV 10.6 fL (8.0-11.0); Monocytes % 5.1; Neutrophils % 77.4; Nucleated RBC 0 %; Platelet Count 240 10^3/uL (130-400); RBC 5.46 10^6/uL (4.36-5.78); RDW-SD 58.3 fL; WBC 6.69 10^3/uL (4.4-10.8)
[2021-11-02 15:43] LABS: ALT 28 U/L (16-63); AST 19 U/L (15-37); Albumin 2.8 g/dL (3.4-5.0); Alkaline Phosphatase 58 U/L (46-116); Anion Gap 7.2 mmol/L (3-11); BUN 20 mg/dL (7-18); Bilirubin, Total 0.6 mg/dL (0.2-1.0); C-Reactive Protein 4.23 mg/dL (0.0-0.3); CO2 32.8 mmol/L (21.0-32.0); CREATININE 1.2 mg/dL (0.70-1.30); Calcium 8.7 mg/dL (8.5-10.1); Chloride 105 mmol/L (98-107); Digoxin 1.33 ng/mL (0.90-2.00); Estimated GFR 59.02 (mL/min/1.73m2); Glucose 99 mg/dL (74-106); Potassium 4.2 mmol/L (3.5-5.1); Sodium 145 mmol/L (136-145); Total Protein 7.2 g/dL (6.4-8.2)
== END 2021-11-02 16:48 | disposition home or self-care (01) ==
LOC: LBN 16:47
PROVIDERS: PCP Family Medicine; Visit Provider Family Medicine
DX: I50.9 Heart failure, unspecified (principal); I10 Essential (primary) hypertension; I48.0 Paroxysmal atrial fibrillation; G92.8 Other toxic encephalopathy; G20 Parkinson's disease; G93.41 Metabolic encephalopathy
CPT/HCPCS: 80053; 80162; 82140; 85025; 86140

== ENCOUNTER 2021-11-02 17:07 | Outpatient (REF) | payer MEDICARE, BC, SELFPAY | END 2021-11-02 17:08 | disposition home or self-care (01) | LOC: LBN 17:07 | PROVIDERS: PCP Family Medicine; Visit Provider Family Medicine ==